=== PATIENT | male | born 1985 | race Caucasian/White ===

== ENCOUNTER 2023-01-16 07:31 | Day surgery (SDC) | payer BC, SELFPAY ==
[2023-01-16 07:43] VITALS: BMI 25.7
[2023-01-16 07:48] VITALS: BP 114/89; PULSE 65; RESP 16; TEMP 36.7; O2SAT 98
[2023-01-16] MEDS: LACTATED RINGERS 1000 ML 1,000 ML 100 ML IV (08:00)
[2023-01-16] MEDS: SODIUM CHLORIDE 0.9 % (FLUSH) 10 ML SYRINGE IVF (08:00)
--- NOTE | 2023-01-16 09:14 | W.PM.H&PU ---
History & Physical Update History & Physical Update H&P Reviewed and patient assessed: No changes noted
--- NOTE | 2023-01-16 09:21 | PM.GSPRC ---
Operative Note Pre-op diagnosis: 1. Enlarging left groin cyst. Indications: 37-year-old male was seen in clinic for evaluation of an enlarging left groin cyst that was initially noticed many years ago. The size of the cyst was initially as large as a dime. This has been enlarging in size and most recently he was treated with antibiotics for possible infection of the cyst. Patient denied pain at the cyst but stated that occasionally it drained foul-smelling fluid. On clinical exam in the left groin over the medial left inguinal ligament there was a subdermal mass measuring approximately 4 x 1.5 cm. This appeared to extend deep and had limited mobility. The skin overlying the cyst was slightly pink with no concerns for cellulitis. There was a tiny a skin opening over the cyst with white cheesy foul smelling material coming out from the cyst. Given patient's clinical history and his physical exam, an enlarging benign cyst was suspected. I recommended to excise this in the operating room given the limited mobility of the cyst and its deep attachment to the underlying tissues. The risks of the procedure including infection, bleeding, and cyst recurrence were all discussed with the patient, and he agreed to proceed. Procedure Description: After discussing the risks and benefits of the procedure, the patient signed informed consent.? The operative site was marked and the patient was brought to the operating room and placed on the operating table in supine position.? Care was taken to pad the patient's pressure points.?? The patient was then sedated by anesthesia.?? The operative site was then prepped and draped in the usual sterile fashion.? A time-out was then performed. Local anesthetic was injected at the surgical site. An oblique elliptical surgical incision was made over the cyst excising the cyst opening. The cyst was dissected of the dermis and subcutaneous tissue with a scalpel and cautery. Hemostasis achieved with cautery. The cyst was measuring 4 x 2.3 cm. This had an appearance of a benign cyst. It was sent to pathology. Medial and lateral skin flaps were then developed with cautery. Deep subcutaneous tissues were reapproximated with interrupted 2-0 Vicryl sutures. The dermis was then reapproximated with interrupted 3-0 Vicryl. The skin was closed with a running 4-0 Monocryl stitch. Dermabond was applied over the incision. ? The patient was then woken and transported to the recovery area in stable condition. ? The patient tolerated the procedure well. Findings: Benign appearing cyst. Anesthesia: MAC and local Surgeon: Maria Teresa Quesada MD Estimated blood loss (mL): 2 Additional Specimen Information: 1. Left groin cyst. Condition: stable Disposition: same day Date of procedure: 01/16/23
[2023-01-16] MEDS: CEFAZOLIN 2 GM INJ IVP (09:29)
[2023-01-16] MEDS: BUPIVACAINE 0.25% 30 ML INJECTION (09:40)
[2023-01-16 10:05] VITALS: BP 96/58; PULSE 85; RESP 16; TEMP 36.6; O2SAT 94
--- NOTE | 2023-01-16 10:06 | W.ANESCHARGE ---
Anesthesia Charges Start Date/Time Anesthesia Start Date: 01/16/23 Anesthesia Start Time: 09:16 Stop Date/Time Anesthesia Stop Date: 01/16/23 Anesthesia Stop Time: 10:07
[2023-01-16 10:15] VITALS: BP 110/73; PULSE 76; RESP 16; O2SAT 96
[2023-01-16 10:30] VITALS: BP 107/77; PULSE 75; RESP 16; O2SAT 97
[2023-01-16 10:45] VITALS: BP 101/82; PULSE 66; RESP 16; O2SAT 97
[2023-01-16 11:00] VITALS: BP 94/73; PULSE 72; RESP 16; O2SAT 96
== END 2023-01-16 11:05 | disposition home or self-care (01) ==
PROVIDERS: PCP Surgery; Visit Provider Surgery
PROC: (CPT 11406; principal; 2023-01-16 08:45)
DX: L72.0 Epidermal cyst (principal)
CPT/HCPCS: 11406; 12031; 00400; 88304; J0665; J0690; J2250; J2704; J3010; J7120